=== PATIENT | female | born 1995 ===

== ENCOUNTER 2018-10-20 12:24 | Emergency (ER) | payer SELFPAY ==
[~2018-10-20] VITALS: Ht 175.3 cm; Wt 93.9 kg
--- OUTSIDE RECORDS SUMMARY | 2018-10-20 12:29 | XMS REPORT | Clinical Summary ---
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 Active Favian De La Cruz MD Neoplasm of uncertain behavior, site unspecified Medication List Medication Instructions Start Date Stop Date Generic Name NDC Status Provider Patient Instruction RITALIN LA 20 MG ORAL [id number] 1 qd METHYLPHENIDATE HCL 70102306947 Active Favian De La Cruz MD Active SPIRONOLACTONE 25 MG ORAL TABS 1 q d SPIRONOLACTONE 91986050445 Active Favian De La Cruz MD Active METFORMIN HCL 500 MG ORAL TABS 1 q d METFORMIN HCL 22500616072 Active Favian De La Cruz MD Active Advance Directives Directive Description Start Date PERMISSION TO SHARE Procedures Code Procedure Name Date Entry Date Standard Description 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
--- OUTSIDE RECORDS SUMMARY | 2018-10-20 12:29 | XMS REPORT | Clinical Summary ---
Author Author Admin, E Organization All Address Unknown Phone Unavailable Allergies, Adverse Reactions, Alerts Allergy Name Reaction Description Start Date Severity Status Provider Allergies Unknown Conditions or Problems Problem Name Problem Code [...] Patient Instruction RITALIN LA 20 MG ORAL [id number] 1 qd METHYLPHENIDATE HCL 65140709987 Active Favian De La Cruz MD Active SPIRONOLACTONE 25 MG ORAL TABS 1 q d SPIRONOLACTONE 53034077636 Active Favian De La Cruz MD Active METFORMIN HCL 500 MG ORAL TABS 1 q d METFORMIN HCL 76083605900 Active Favian De La Cruz MD Active Advance Directives Directive Description Start Date PERMISSION TO SHARE Procedures Code Procedure Name Date Entry Date Standard Description 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
--- OUTSIDE RECORDS SUMMARY | 2018-10-20 12:29 | XMS REPORT | Clinical Summary ---
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 Favian De La Cruz MD Neoplasm of uncertain behavior, site unspecified Medication List Medication Instructions Start Date Stop Date Generic Name NDC Status Provider Patient Instruction RITALIN LA 20 MG ORAL [id number] 1 qd METHYLPHENIDATE HCL 13775822963 Active Favian De La Cruz MD Active SPIRONOLACTONE 25 MG ORAL TABS 1 q d SPIRONOLACTONE 20311557377 Active Favian De La Cruz MD Active METFORMIN HCL 500 MG ORAL TABS 1 q d METFORMIN HCL 15649412965 Active Favian De La Cruz MD Active Advance Directives Directive Description Start Date PERMISSION TO SHARE Vital Signs Date Name Value Unit Range Description blood pressure, diastolic - 8462-4 71 mm[Hg] BP cross blood pressure, systolic - 8480-6 118 mm[Hg] BP sys height E&M - 8302-2 69 [in_us] Bdy height pulse rate E&M - 8867-4 50 /min Heart rate temperature E&M 97.8 [degF] Body temperature weight E&M - 3141-9 206 [lb_av] Weight Measured Procedures Code Procedure Name Date Entry Date Standard Description 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
--- OUTSIDE RECORDS SUMMARY | 2018-10-20 12:30 | XMS REPORT | Continuity of Care Document ---
Author Organization Unknown Address Unknown Allergies There is no data. Medications There is no data. Problems There is no data. Procedures There is no data. Results There is no data. Encounters ACCT No. Visit Date/Time Discharge Status Pt. Type Provider Facility Loc./Unit Complaint [id number] 12/10/2016 13:32:59 ACT Unknown
[2018-10-20 14:53] LABS: BILIRUBIN,URINE NEGATIVE (NEGATIVE); CLARITY,URINE CLOUDY; COLOR,URINE YELLOW; GLUCOSE, URINE (UA) NEGATIVE (NEGATIVE); KETONES,URINE NEGATIVE (NEGATIVE); PH,URINE 6.5 (5-9); PROTEIN,URINE NEGATIVE (NEGATIVE)
[2018-10-20 14:54] LABS: BACTERIA,URINE LARGE /HPF; LEUKOCYTE ESTERASE ,URINE 2+ (NEGATIVE); NITRITE,URINE POSITIVE (NEGATIVE); RBC,URINE 0-2 /HPF; UROBILINOGEN,URINE 0.2 MG/DL (NORMAL); WBC,URINE 50-100 /HPF
[2018-10-20 14:55] LABS: HCG,QUALITATIVE URINE POSITIVE (NEGATIVE)
[2018-10-20] MEDS ORDERED: CEPH-507 PO (15:03)
--- NOTE | 2018-10-20 15:04 | ED GU-Female ---
General Chief Complaint: Abdominal/GI Problems Stated Complaint: SUPRAPUBIC PAIN; VOMITING Source: patient, RN notes reviewed Exam Limitations: no limitations History of Present Illness Date Seen by Provider: October 20, 2018 Time Seen by Provider: 12:35 Initial Comments Patient presents c/ c/o acute onset suprapubic abdominal pain this AM. States she is 2 months . Reports daily N/V. Currently nauseated. Rates her discomfort a 4/10 and describes it is sharp. No known fever. Denies any specific symptoms. Timing/Duration: this morning Severity/Quality: moderate (4/10) Location: suprapubic Radiation: none Activities at Onset: none Prior Genitourinary Problems: none Sexual Rayle History: less than 2 months ago Modifying Factors: Improves With Other (nonw) Associated Symptoms: denies symptoms, abdominal pain (suprapubic), nausea/ vomiting Allergies and Home Medications Allergies Coded Allergies: Pertussis Vaccines (Verified Allergy, Unknown, 10/20/18) Home Medications Cephalexin 500 Mg Capsule, 500 MG PO TID Prescribed by: JULIANA WELLINGTON on 10/20/18 1503 Ondansetron 4 Mg Tab.rapdis, 4 MG PO Q6H PRN for NAUSEA/VOMITING Prescribed by: JULIANA WELLINGTON on 10/20/18 1517 Patient Home Medication List Home Medication List Reviewed: Yes Review of Systems Review of Systems Constitutional: see HPI Gastrointestinal: see HPI, abdominal pain, nausea, vomiting : Yes All Other Systemes Reviewed Negative Unless Noted: Yes (Negative excepted noted.) Physical Exam Vital Signs Vital Signs - First Documented 10/20/18 12:39 Temp 98.0 Pulse 60 Resp 18 B/P (MAP) 120/60 (80) Pulse Ox 98 O2 Delivery Room Air Capillary Refill : Height, Weight, BMI Height: '" Weight: lbs. oz. kg; BMI Method: General Appearance: WD/WN, no apparent distress, obese Cardiovascular: regular rate, rhythm Respiratory: no respiratory distress Gastrointestinal: soft; No guarding, No rebound; tenderness (suprapubic) Rectal: deferred Neurologic/Psychiatric: no motor/sensory deficits, alert, oriented x 3 Skin: warm/dry Progress/Results/Core Measures Suspected Sepsis SIRS Temperature: Pulse: Respiratory Rate: Blood Pressure / Mean: Results/Orders Lab Results My Orders Vital Signs/I&O Capillary Refill : Progress Note : Progress Note Nausea improved p/ the Zofran ODT. Departure Impression Primary Impression: Urinary tract infection Additional Impressions: N&V (nausea and vomiting) Disposition: 01 HOME, SELF-CARE Condition: Stable Departure-Patient Inst. Decision time for Depature: 15:00 Referrals: [facility] Patient Instructions: Urinary Tract Infection, Adult (DC) Scripts Ondansetron (Ondansetron Odt) 4 Mg Tab.rapdis 4 MG PO Q6H PRN for NAUSEA/VOMITING, #10 TAB 0 Refills Prov: JULIANA WELLINGTON DO 10/20/18 Cephalexin (Keflex) 500 Mg Capsule 500 MG PO TID for UTI for 10 Days, #30 CAP 0 Refills Prov: JULIANA WELLINGTON DO 10/20/18 JULIANA WELLINGTON DO October 20, 2018 15:04
[2018-10-20] MEDS ORDERED: ONDANSETRON 4 MG (ZOFRAN) ORAL DISSOLVE TAB PO STA (15:15)
[2018-10-20] MEDS ORDERED: ONDA4TAB11 PO (15:17)
[2018-10-20 15:26] VITALS: BP 114/60
== END 2018-10-20 15:24 | disposition home or self-care (01) ==
LOC: ER FS 12:27
DX: O23.40 Unspecified infection of urinary tract in pregnancy, unspecified trimester (principal); Z3A.00 Weeks of gestation of pregnancy not specified
CPT/HCPCS: 81000; 84703; 87077; 87088; 99283

== ENCOUNTER 2018-12-16 20:32 | Emergency (ER) | payer MEDICAID ==
[~2018-12-16] VITALS: Ht 175.3 cm; Wt 92.5 kg
[~2018-12-16 20:32] MED LIST: CEPH-507 PO; ONDA4TAB11 PO
--- OUTSIDE RECORDS SUMMARY | 2018-12-16 20:39 | XMS REPORT | Continuity of Care Document ---
Author Organization Unknown Address Unknown Allergies Active Description Code Type Severity Reaction Onset Reported/Identified Relationship to Patient Clinical Status Yes No Known Drug Allergies [id number] Drug Allergy Unknown N/A 10/20/2018 Yes Pertussis Vaccines [id number] Drug Allergy Unknown N/A 10/20/2018 Medications There is no data. Problems Date Dx Coded Attending Type Code Diagnosis Diagnosed By 10/20/2018 JULIANA WELLINGTON DO, Ot O23.40 UNSP INFECTION OF URINARY TRACT IN PREGN 10/20/2018 JULIANA WELLINGTON DO Ot O26.899 OT RELATED CONDITIONS, UNSPEC 10/20/2018 JULIANA WELLINGTON DO Ot Z3A.00 WEEKS OF GESTATION OF NOT SPEC 10/22/2018 JULIANA WELLINGTON DO, Ot O23.40 UNSP INFECTION OF URINARY TRACT IN PREGN 10/22/2018 JULIANA WELLINGTON DO, Ot O26.899 OT RELATED CONDITIONS, UNSPEC 10/22/2018 JULIANA WELLINGTON DO, Ot Z3A.00 WEEKS OF GESTATION OF NOT SPEC Procedures There is no data. Results Test Result Range Complete urinalysis with reflex to culture - 10/20/18 12:39 Urine color determination YELLOW NRG Urine clarity determination CLOUDY NRG Urine pH measurement by test strip 6.5 5-9 Specific gravity of urine by test strip 1.020 1.016-1.022 Urine protein assay by test strip, semi-quantitative NEGATIVE NEGATIVE Urine glucose detection by automated test strip NEGATIVE NEGATIVE Erythrocytes detection in urine sediment by light microscopy TRACE-I NEGATIVE Urine ketones detection by automated test strip NEGATIVE NEGATIVE Urine nitrite detection by test strip POSITIVE NEGATIVE Urine total bilirubin detection by test strip NEGATIVE NEGATIVE Urine urobilinogen measurement by automated test strip (mass/volume) 0.2 mg/dL NORMAL Urine leukocyte esterase detection by dipstick 2+ NEGATIVE Automated urine sediment erythrocyte count by microscopy (number/high power field) [HPF] NRG Automated urine sediment leukocyte count by microscopy (number/high power field) [HPF] NRG Bacteria detection in urine sediment by light microscopy LARGE NRG Squamous epithelial cells detection in urine sediment by light microscopy 10-25 NRG Crystals detection in urine sediment by light microscopy NONE NRG Casts detection in urine sediment by light microscopy NONE NRG Mucus detection in urine sediment by light microscopy MODERATE NRG Complete urinalysis with reflex to culture YES NRG Urine beta human chorionic gonadotropin (hCG) measurement - 10/20/18 12:39 Urine beta human chorionic gonadotropin (hCG) measurement POSITIVE NEGATIVE Bacterial urine culture - 10/20/18 12:39 Bacterial urine culture [id number] NRG COLONY COUNT >100,000/ML NRG FTX;REPORTABLE SUSCEPTIBILITY REPORTE 10-23-18, 1205. NRG RML Sensitivity Panel - 10/20/18 12:39 Gentamicin susceptibility test by minimum inhibitory concentration <= NRG Trimethoprim/sulfamethoxazole susceptibility test by minimum inhibitoryconcentration <= NRG Levofloxacin susceptibility test by minimum inhibitory concentration <= NRG Ampicillin susceptibility test by minimum inhibitory concentration > NRG Cefazolin susceptibility test by minimum inhibitory concentration 4 NRG Ceftriaxone susceptibility test by minimum inhibitory concentration <= NRG Ciprofloxacin susceptibility test by minimum inhibitory concentration <= NRG Meropenem susceptibility test by minimum inhibitory concentration <= NRG Nitrofurantoin susceptibility test by minimum inhibitory concentration 32 NRG Amoxicillin and clavulanate potassium susc JOANNA = NRG Encounters ACCT No. Visit Date/Time Discharge Status Pt. Type Provider Facility Loc./Unit Complaint [id number] 12/10/2016 13:32:59 ACT Unknown [id number] 10/20/2018 12:27:00 10/20/2018 15:24:00 DIS Emergency JULIANA WELLINGTON DO [facility] ER FS SUPRAPUBIC PAIN; VOMITING [id number] 12/16/2018 20:34:00 ACT Emergency RASHMI LOPEZ MD [facility] ER FS BUMP NEAR GROIN AREA
--- NOTE | 2018-12-16 21:55 | NUR ---
PT.'S BOYFRIEND CAME TO THE DESK AND WAS STATING THE PT. IS AND NEEDED TO BE SEEN IN THE NEXT 20 MIN OR HE WAS GOING TO TAKE NAMES AND REPORT ALL OF US FOR NOT SEEING HER. THE PT. WAS TRIAGED BUT THE DOCTOR HAD NOT HAD TIME TO SEE HER WE HAD 5 CRITICAL PATIENTS IN THE ER. THIS PT. WAS BEING SEEN FOR AN ABSCESS NOT AN EMERGENT SITUATION UNLIKE THE OTHER PATIENTS WHO WERE IN THE ER. THIS RN GAVE HER NAME TO THE BOYFRIEND OF THE PATIENT AND THE PATIENT SIGNED AMA PAPERS.
[2018-12-16 22:04] VITALS: BP 129/51
== END 2018-12-16 22:07 | disposition left against medical advice (07) ==
LOC: EDUNIT# 20:32 → ER FS 20:34
DX: L02.214 Cutaneous abscess of groin (principal)
CPT/HCPCS: 99281

== ENCOUNTER 2019-05-05 06:00 | Inpatient (IN) | payer MEDICAID ==
[2019-05-05] VITALS (58 sets, daily range): BP systolic 92–138; BP diastolic 52–80
[~2019-05-05] VITALS: Ht 175.3 cm; Wt 101.3 kg
[2019-05-05] MEDS: D5 LR IV SOLUTION 1,000 ML IV SCH ×2 (07:49→15:55)
[2019-05-05] MEDS ORDERED: D5 LR IV SOLUTION 1,000 ML IV ONE (07:57)
[2019-05-05] MEDS ORDERED: OXYTOCIN/NORMAL SALINE 500 ML IV ONE (07:57)
[2019-05-05] MEDS ORDERED: OXYTOCIN/NORMAL SALINE 500 ML IV SCH ×2 (08:19→19:07)
[2019-05-05 08:26] LABS: BASOPHILS % (AUTO) 0 % (0-10); EOSINOPHILS # (AUTO) 0.1 10^3/uL (0.0-0.3); EOSINOPHILS % (AUTO) 1 % (0-10); HEMATOCRIT 34 % (35-52); HEMOGLOBIN 11.4 G/DL (11.5-16.0); LYMPHOCYTES # (AUTO) 2.3 X 10^3 (1.0-4.0); LYMPHOCYTES % (AUTO) 21 % (12-44); MEAN CORPUSCULAR HEMOGLOBIN 31 PG (25-34); MEAN CORPUSCULAR HGB CONC 34 G/DL (32-36); MEAN CORPUSCULAR VOLUME 93 FL (80-99); MONOCYTES # (AUTO) 0.6 X 10^3 (0.0-1.0); MONOCYTES % (AUTO) 6 % (0-12); NEUTROPHILS # (AUTO) 7.5 X 10^3 (1.8-7.8); NEUTROPHILS % (AUTO) 71 % (42-75); PLATELET COUNT 431 10^3/uL (130-400); RED CELL DISTRIBUTION WIDTH 13.5 % (10.0-14.5); WHITE BLOOD COUNT 10.6 10^3/uL (4.3-11.0)
[2019-05-05 08:27] LABS: BILIRUBIN,URINE NEGATIVE (NEGATIVE); CLARITY,URINE CLEAR; COLOR,URINE AMBER; GLUCOSE, URINE (UA) NEGATIVE (NEGATIVE); KETONES,URINE NEGATIVE (NEGATIVE); LEUKOCYTE ESTERASE ,URINE 1+ (NEGATIVE); NITRITE,URINE POSITIVE (NEGATIVE); PROTEIN,URINE NEGATIVE (NEGATIVE)
[2019-05-05 08:36] LABS: BACTERIA,URINE MODERATE /HPF
--- NOTE | 2019-05-05 09:16 | History & Physical-OB ---
OB - Chief Complaint & HPI Date/Time Date of Admission: Date of Admission: May 05, 2019 at 07:30 Date seen by a Provider: May 05, 2019 Time Seen by a Provider: 09:13 Chief Complaint/History OB-Reason for Admission/Chief: Induction of Labor Hx : 2 Hx Para: 1 Expected Date of Delivery: May 09, 2019 Gestational Age in Weeks: 39 Gestational Age in Days: 3 Indication for induction: maternal discomfort Admission Nurse Assessment Rev: Yes Allergies and Home Medications Allergies Coded Allergies: Pertussis Vaccines (Verified Allergy, Unknown, 10/20/18) Home Medications Cephalexin 500 Mg Capsule, 500 MG PO TID Prescribed by: JULIANA WELLINGTON on 10/20/18 1503 Ondansetron 4 Mg Tab.rapdis, 4 MG PO Q6H PRN for NAUSEA/VOMITING Prescribed by: JULIANA WELLINGTON on 10/20/18 1517 Patient Home Medication List Home Medication List Reviewed: Yes OB - History Hx of Present Care: Yes Ultrasounds: Normal mid trimester US Obstetrical Complications: None Medical Complications: Other (marajuana use) Patient Past Medical History marajuana use Social History/Family History Alcohol Use: Denies Use Recreational Drug Use: Yes (previous hx THC use) 2nd Hand Smoke Exposure: Yes Immunizations Date of Influenza Vaccine: Feb 26, 2019 OB - Admission Exam Physical Exam Vitals: Vital Signs 05/05/19 05/05/19 07:45 08:15 Temp 36.4 Pulse 77 Resp 18 B/P (MAP) 138/56 (83) Pulse Ox 97 O2 Delivery Room Air HEENT: NCAT Heart: Rhythm Normal Lungs: Clear Abdomen: Gravid Extremities: Normal Reflexes: Normal Cervical Dilatation: 2cm Effacement: 25% Station: -3 Membranes: Intact Amniotic Fluid: Clear Heart Rate: 150's Accelerations: Accelerations Present Decelerations: Variable Decelerations Short Term Variability: Present Tax Intern Variability: Average (6-25) Contractions on Admission: < 5 Minutes Apart Labs Laboratory Tests Test 05/05/19 07:30 05/05/19 07:49 Range/Units Urine Color MICHELLE H Urine Clarity CLEAR Urine pH 6.0 5-9 Urine Specific [place] 1.025 H 1.016-1.022 Urine Protein NEGATIVE NEGATIVE Urine Glucose (UA) NEGATIVE NEGATIVE Urine Ketones NEGATIVE NEGATIVE Urine Nitrite POSITIVE NEGATIVE Urine Bilirubin NEGATIVE NEGATIVE Urine Urobilinogen 1.0 < = 1.0 MG/DL Urine Leukocyte Esterase 1+ H NEGATIVE Urine RBC (Auto) NEGATIVE NEGATIVE Urine RBC 2-5 H /HPF Urine WBC 10-25 H /HPF Urine Squamous Epithelial Cells 10-25 H /HPF Urine Crystals NONE /LPF Urine Bacteria MODERATE H /HPF Urine Casts NONE /LPF Urine Mucus NEGATIVE /LPF Urine Culture Indicated CULTURE PENDING White Blood Count 10.6 4.3-11.0 10^3/uL Red Blood Count 3.66 L 4.35-5.85 10^6/uL Hemoglobin 11.4 L 11.5-16.0 G/DL Hematocrit 34 L 35-52 % Mean Corpuscular Volume 93 80-99 FL Mean Corpuscular Hemoglobin 31 25-34 PG Mean Corpuscular Hemoglobin Concent 34 32-36 G/DL Red Cell Distribution Width 13.5 10.0-14.5 % Platelet Count 431 H 130-400 10^3/uL Mean Platelet Volume 10.0 7.4-10.4 FL Neutrophils (%) (Auto) 71 42-75 % Lymphocytes (%) (Auto) 21 12-44 % Monocytes (%) (Auto) 6 0-12 % Eosinophils (%) (Auto) 1 0-10 % Basophils (%) (Auto) 0 0-10 % Neutrophils # (Auto) 7.5 1.8-7.8 X 10^3 Lymphocytes # (Auto) 2.3 1.0-4.0 X 10^3 Monocytes # (Auto) 0.6 0.0-1.0 X 10^3 Eosinophils # (Auto) 0.1 0.0-0.3 10^3/uL Basophils # (Auto) 0.0 0.0-0.1 10^3/uL OB - Assessment/Plan/Diagnosis Assessment Assessment: induction of labor Admission Dx Induction of labor at 39 3/7 wga. GBS negative. Admission Status: Inpatient Order (span 2 midnights) Reason for Inpatient Admission: Induction of labor. Plan Plan: Induction Induction Method: per Pitocin Protocol Other Plan AROM. WARREN TRAORE MD May 05, 2019 09:15 POS
[2019-05-05] MEDS ORDERED: SUFENTA 0.6MCG/ML BUPIVA 0.125 100 ML ONE (10:24)
[2019-05-05] MEDS ORDERED: LACTATED RINGERS 1,000 ML IV ONE ×3 (10:24→11:50)
[2019-05-05] MEDS ORDERED: fentaNYL INJECTION 100 MCG/2 ML AMP ONE (11:22)
[2019-05-05] MEDS ORDERED: BUPIVACAINE 0.25% 30 ML (SENSORCAINE) VIAL ONE (11:22)
[2019-05-05] MEDS ORDERED: NALOXONE 0.4 MG/ML 1 ML (NARCAN) VIAL IV PRN (12:00)
[2019-05-05] MEDS ORDERED: ONDANSETRON 4 MG/2 ML (SDV) Z0FRAN IV PRN (12:00)
[2019-05-05] MEDS ORDERED: EPIDURAL (SUFENTA 0.6MCG/ML BUPIVA 0.125%) 100 ML BAG EPI PRN (12:00)
[2019-05-05] MEDS ORDERED: CATHETER FLUSH 10 ML SYR IV SCH ×2 (14:00→22:00)
[2019-05-05 14:34] LABS: AMPHETAMINE SCREEN, URINE NEGATIVE (NEGATIVE); BARBITURATE SCREEN URINE NEGATIVE (NEGATIVE); BENZODIAZEPINES SCREEN URINE NEGATIVE (NEGATIVE); CANNABINOID SCREEN, URINE NEGATIVE (NEGATIVE); COCAINE SCREEN URINE NEGATIVE (NEGATIVE); METHADONE STAT NEGATIVE (NEGATIVE); METHAMPHETAMINE SCREEN URINE S NEGATIVE (NEGATIVE); OPIATE SCREEN URINE NEGATIVE (NEGATIVE); OXYCODONE STAT NEGATIVE (NEGATIVE); PROPOXYPHENE STAT NEGATIVE (NEGATIVE); TRICYCLIC ANTIDEPRESSANTS SCRE NEGATIVE (NEGATIVE)
--- NOTE | 2019-05-05 19:07 | OB Labor & Delivery Record ---
Vag Delivery Note Vag Delivery Note Date of Delivery: 05/05/19 Preoperative Diagnosis: Renu Hernandez is a (23 /Para 2 / 1,Gestational Age (wks)39with [] Postoperative Diagnosis: Same Surgeon: WARREN TRAORE Applied Anthropologist: [none] Anesthesia: [epidural] Delivery Type: [] Findings: [] Viable [male] infant, apgars [8/9], weight [7 pounds 14 ounces] Lacerations: Intact placenta with 3 vessel cord. Loose nuchal cord. Estimated Blood Loss: [150] ml Complications: None Condition: Stable Description of Procedure: The patient is a 23 year old female who presented [for induction of labor]. She was admitted and informed consent was obtained. Her labor course was remarkable for [OP position] She progressed to complete dilatation and began to push. She was then set up for delivery. The 's head was delivered atraumatically in the [OA] position. The shoulders and remainder of the 's body were then delivered without difficulty. Upon delivery, the head was held below the level of the perineum and the mouth and nares were bulb suctioned. The cord was doubly clamped and cut and the infant was handed off to the pediatric staff. An intact placenta with 3-vessel cord delivered via Brodie and there was found to be minimal bleeding.~ Vigorous fundal massage was performed and the fundus was found to be firm. IV oxytocin was given. Examination of the vagina and perineum revealed no lacerations. Following the repair, sponge, instrument and needle counts were correct. Mom and baby were both in stable condition in the labor suite. Vitals - Labs Vital Signs - I&O Vital Signs Date Time Temp Pulse Resp B/P (MAP) Pulse Ox O2 Delivery O2 Flow Rate FiO2 05/05/19 16:30 54 18 120/58 (78) 97 Room Air 05/05/19 16:15 60 18 106/53 (70) 99 Room Air 05/05/19 16:00 56 18 111/52 (71) 98 Room Air 05/05/19 15:45 60 18 113/53 (73) 98 Room Air 05/05/19 15:30 61 18 108/52 (70) 98 Room Air 05/05/19 15:15 61 18 114/53 (73) 99 Room Air 05/05/19 15:00 62 18 112/59 (76) 99 Room Air 05/05/19 14:45 60 18 107/56 (73) 99 Room Air 05/05/19 14:30 57 18 114/55 (74) 98 Room Air 05/05/19 14:15 60 18 114/59 (77) 99 Room Air 05/05/19 14:00 60 18 119/58 (78) 100 Room Air 05/05/19 13:45 64 18 109/59 (76) 100 Room Air 05/05/19 13:30 69 18 122/57 (78) 99 Room Air 05/05/19 13:15 58 18 120/68 (85) 98 Room Air 05/05/19 13:00 55 18 123/59 (80) 98 Room Air 05/05/19 12:45 55 18 123/59 (80) 98 Room Air 05/05/19 12:30 60 18 124/55 (78) 98 Room Air 05/05/19 12:15 61 18 120/56 (77) 96 Room Air 05/05/19 12:00 64 18 122/57 (78) 98 Room Air 05/05/19 11:55 72 18 121/59 (79) 97 Room Air 05/05/19 11:50 72 18 121/56 (77) 97 Room Air 05/05/19 11:45 36.6 68 18 121/59 (79) 98 Room Air 05/05/19 11:40 67 18 129/65 (86) 99 Room Air 05/05/19 11:35 66 18 128/63 (84) 98 Room Air 05/05/19 11:30 67 18 138/62 (87) 99 Room Air 05/05/19 11:25 54 18 120/62 (81) 100 Room Air 05/05/19 11:15 70 18 121/64 (83) Room Air 05/05/19 11:00 69 18 125/58 (80) Room Air 05/05/19 10:45 64 18 120/64 (82) Room Air 05/05/19 10:30 58 18 125/65 (85) Room Air 05/05/19 10:15 36.9 56 18 128/60 (82) Room Air 05/05/19 10:00 64 18 125/62 (83) Room Air 05/05/19 09:45 72 18 123/58 (79) Room Air 05/05/19 09:30 63 18 123/58 (79) 97 Room Air 05/05/19 09:15 67 18 130/60 (83) 98 Room Air 05/05/19 09:00 71 18 129/63 (85) 98 Room Air 05/05/19 09:00 36.4 76 18 97 Room Air 05/05/19 08:45 77 18 125/72 (89) Room Air 05/05/19 08:30 78 18 126/58 (80) Room Air 05/05/19 08:15 77 18 138/56 (83) Room Air 05/05/19 08:00 78 18 128/69 (88) Room Air 05/05/19 07:45 36.4 76 18 125/71 (89) 97 Room Air Labs Laboratory Tests 05/05/19 07:30: Urine Color AMBERH, Urine Clarity CLEAR, Urine pH 6.0, Urine Specific [place] 1.025H, Urine Protein NEGATIVE, Urine Glucose (UA) NEGATIVE, Urine Ketones NEGATIVE, Urine Nitrite POSITIVE, Urine Bilirubin NEGATIVE, Urine Urobilinogen 1.0, Urine Leukocyte Esterase 1+H, Urine RBC (Auto) NEGATIVE, Urine RBC 2-5H, Urine WBC 10-25H, Urine Squamous Epithelial Cells 10-25H, Urine Crystals NONE, Urine Bacteria MODERATEH, Urine Casts NONE, Urine Mucus NEGATIVE, Urine Culture Indicated CULTURE PENDING, Urine Opiates Screen NEGATIVE, Urine Oxycodone Screen NEGATIVE, Urine Methadone Screen NEGATIVE, Urine Propoxyphene Screen NEGATIVE, Urine Barbiturates Screen NEGATIVE, Ur Tricyclic Antidepressants Screen NEGATIVE, Urine Phencyclidine Screen NEGATIVE, Urine Amphetamines Screen NEGATIVE, Urine Methamphetamines Screen NEGATIVE, Urine Benzodiazepines Screen NEGATIVE, Urine Cocaine Screen NEGATIVE, Urine Cannabinoids Screen NEGATIVE 05/05/19 07:49: White Blood Count 10.6, Red Blood Count 3.66L, Hemoglobin 11.4L, Hematocrit 34L, Mean Corpuscular Volume 93, Mean Corpuscular Hemoglobin 31, Mean Corpuscular Hemoglobin Concent 34, Red Cell Distribution Width 13.5, Platelet Count 431H, Mean Platelet Volume 10.0, Neutrophils (%) (Auto) 71, Lymphocytes (%) (Auto) 21, Monocytes (%) (Auto) 6, Eosinophils (%) (Auto) 1, Basophils (%) (Auto) 0, Neutrophils # (Auto) 7.5, Lymphocytes # (Auto) 2.3, Monocytes # (Auto) 0.6, Eosinophils # (Auto) 0.1, Basophils # (Auto) 0.0 WARREN TRAORE MD May 05, 2019 19:07 POS
[2019-05-05] MEDS ORDERED: WITCH HAZEL(TUCKS) 40 EA JAR TOP PRN (19:15)
[2019-05-05] MEDS ORDERED: BENZOCAINE/MENTHOL (DERMOPLAST) 56 ML CAN TP PRN (19:15)
[2019-05-05] MEDS ORDERED: MEASLES,MUMPS,RUBELLA 1 EA INJ SQ ONE (19:15)
[2019-05-05] MEDS: IBUPROFEN 600 MG (MOTRIN) TAB PO SCH (21:10)
[2019-05-05] MEDS: DOCUSATE SODIUM 100 MG (COLACE) CAP PO SCH (23:14)
[2019-05-05] MEDS: ACETAMINOPHEN 500 MG TAB (TYLENOL) PO SCH (23:14)
[2019-05-06 04:03] VITALS: BP 104/64
[2019-05-06] MEDS: IBUPROFEN 600 MG (MOTRIN) TAB PO SCH ×4 (04:03→23:20)
[2019-05-06 07:33] LABS: BASOPHILS % (AUTO) 0 % (0-10); EOSINOPHILS # (AUTO) 0.2 10^3/uL (0.0-0.3); EOSINOPHILS % (AUTO) 2 % (0-10); HEMATOCRIT 33 % (35-52); HEMOGLOBIN 10.7 G/DL (11.5-16.0); LYMPHOCYTES # (AUTO) 3.1 X 10^3 (1.0-4.0); LYMPHOCYTES % (AUTO) 23 % (12-44); MEAN CORPUSCULAR HEMOGLOBIN 31 PG (25-34); MEAN CORPUSCULAR HGB CONC 32 G/DL (32-36); MEAN CORPUSCULAR VOLUME 97 FL (80-99); MEAN PLATELET VOLUME 10.3 FL (7.4-10.4); MONOCYTES % (AUTO) 7 % (0-12); NEUTROPHILS % (AUTO) 68 % (42-75); PLATELET COUNT 332 10^3/uL (130-400); RED CELL DISTRIBUTION WIDTH 13.5 % (10.0-14.5); WHITE BLOOD COUNT 13.3 10^3/uL (4.3-11.0)
[2019-05-06 08:00] VITALS: BP 115/57
--- NOTE | 2019-05-06 08:21 | Progress Note ---
Subjective Subjective/Events-last exam Pain controlled. Bleeding about the same as a period. Getting up and moving around. . Objective Exam Last Set of Vital Signs Vital Signs Date Time Temp Pulse Resp B/P (MAP) Pulse Ox O2 Delivery O2 Flow Rate FiO2 05/06/19 04:03 36.8 53 16 104/64 (77) 96 Room Air Capillary Refill : Less Than 3 Seconds I&O Intake and Output 05/06/19 00:00 Intake Total 3500 ml Balance 3500 ml Intake IV Total 3500 ml Daily Weight Change No General: Alert, Oriented X3 HEENT: Atraumatic Lungs: Clear to Auscultation Heart: Regular Rate, No Murmurs Abdomen: Normal Bowel Sounds, Other (fundus firm and below umbilicus) Extremities: Other (1+ edema bilaterally) Skin: No Rashes Results/Procedures Lab Laboratory Tests 05/06/19 07:20: White Blood Count 13.3H, Red Blood Count 3.43L, Hemoglobin 10.7L, Hematocrit 33L , Mean Corpuscular Volume 97, Mean Corpuscular Hemoglobin 31, Mean Corpuscular Hemoglobin Concent 32, Red Cell Distribution Width 13.5, Platelet Count 332, Mean Platelet Volume 10.3, Neutrophils (%) (Auto) 68, Lymphocytes (%) (Auto) 23, Monocytes (%) (Auto) 7, Eosinophils (%) (Auto) 2, Basophils (%) (Auto) 0, Neutrophils # (Auto) 9.0H, Lymphocytes # (Auto) 3.1, Monocytes # (Auto) 1.0, Eosinophils # (Auto) 0.2, Basophils # (Auto) 0.0 Assessment/Plan Assessment/Plan Admission Dx day 1 from at 39 3/7 wga, GBS negative. (1) care following vaginal delivery Assessment & Plan: Doing well. Continue to work on latching. Home in AM. Clinical Quality Measures DVT/VTE Risk/Contraindication: Risk Factor Score Per Nursin RFS Level Per Nursing on Admit: 2=Moderate WARREN TRAORE MD May 06, 2019 08:21 POS
[2019-05-06] MEDS: DOCUSATE SODIUM 100 MG (COLACE) CAP PO SCH ×2 (08:32→20:45)
--- NOTE | 2019-05-06 08:52 | Anesthesia-Regional Post-Op ---
Regional Patient Condition Mental Status: Alert, Oriented x3 Circulation: Same as Pre-Op Headache: Absent Sensation: Full Recovery Motor Block: Absent Post Op Complications Complications None Follow Up Care/Instructions Patient Instructions None needed. Anesthesia/Patient Condition Patient is doing well, no complaints, stable vital signs, no apparent adverse anesthesia problems. No complications reported per nursing. DORINDA FLORES CRNA May 06, 2019 08:52 POS
[2019-05-06 12:30] VITALS: BP 107/54
[2019-05-06] MEDS: ACETAMINOPHEN 500 MG TAB (TYLENOL) PO SCH ×2 (12:36→20:45)
[2019-05-06 16:00] VITALS: BP 126/58
[2019-05-06 20:44] VITALS: BP 123/74
[2019-05-07 05:23] VITALS: BP 110/75
[2019-05-07] MEDS: IBUPROFEN 600 MG (MOTRIN) TAB PO SCH (05:24)
[2019-05-07 07:40] VITALS: BP 123/64
[2019-05-07] MEDS: ACETAMINOPHEN 500 MG TAB (TYLENOL) PO SCH (07:46)
[2019-05-07] MEDS: DOCUSATE SODIUM 100 MG (COLACE) CAP PO SCH (07:46)
--- NOTE | 2019-05-07 08:54 | Discharge Instructions ---
Discharge Inst-[facility] Reconcile Patient Problems Problems Reviewed?: Yes Depart Medications New, Converted or Re-Newed RX: Call to Patients Pharmacy Follow Up/Instructions Goal/Follow Up: Follow-up with Dr. Traore in 6 weeks for post- check-up. Activity Activity: Activity as Tolerated Driving Instructions: You May Drive NO SMOKING: NO SMOKING Nothing Inside Vagina: No Douching, No Kiefer, No Tampons Diet Discharge Diet: No Restrictions Symptoms to Report to : Bleeding Excessive, Fever Over 101 Degrees F, Vaginal Bleeding Increase, Lightheadedness For Any Problems or Questions: Contact Your Physician WARREN TRAORE MD May 07, 2019 08:54 POS
--- NOTE | 2019-05-07 08:58 | OB Labor & Delivery Record ---
L&D History History Expected Date of Delivery: May 09, 2019 Gestational Age in Weeks: 38 Hx : 2 Hx Para: 1 L&D Stage1 Stage One Onset of Labor - Date: May 06, 2019 Onset of Labor - Time: 08:00 Monitors and Tracing Monitor Mode: Internal Heart Rate: 120 Station: 0 Vital Signs VS - Last 72 Hours, by Label POS 05/05/19 05/05/19 05/05/19 05/05/19 07:45 08:00 08:15 08:30 Temp 36.4 Pulse 76 78 77 78 Resp 18 18 18 18 B/P (MAP) 125/71 (89) 128/69 (88) 138/56 (83) 126/58 (80) Pulse Ox 97 O2 Delivery Room Air Room Air Room Air Room Air 05/05/19 05/05/19 05/05/19 05/05/19 08:45 09:00 09:00 09:15 Temp 36.4 Pulse 77 76 71 67 Resp 18 18 18 18 B/P (MAP) 125/72 (89) 129/63 (85) 130/60 (83) Pulse Ox 97 98 98 O2 Delivery Room Air Room Air Room Air Room Air 05/05/19 05/05/19 05/05/19 05/05/19 09:30 09:45 10:00 10:15 Temp 36.9 Pulse 63 72 64 56 Resp 18 18 18 18 B/P (MAP) 123/58 (79) 123/58 (79) 125/62 (83) 128/60 (82) Pulse Ox 97 O2 Delivery Room Air Room Air Room Air Room Air 05/05/19 05/05/19 05/05/19 05/05/19 10:30 10:45 11:00 11:15 Pulse 58 64 69 70 Resp 18 18 18 18 B/P (MAP) 125/65 (85) 120/64 (82) 125/58 (80) 121/64 (83) O2 Delivery Room Air Room Air Room Air Room Air 05/05/19 05/05/19 05/05/19 05/05/19 11:25 11:30 11:35 11:40 Pulse 54 67 66 67 Resp 18 18 18 18 B/P (MAP) 120/62 (81) 138/62 (87) 128/63 (84) 129/65 (86) Pulse Ox 100 99 98 99 O2 Delivery Room Air Room Air Room Air Room Air 05/05/19 05/05/19 05/05/19 05/05/19 11:45 11:50 11:55 12:00 Temp 36.6 Pulse 68 72 72 64 Resp 18 18 18 18 B/P (MAP) 121/59 (79) 121/56 (77) 121/59 (79) 122/57 (78) Pulse Ox 98 97 97 98 O2 Delivery Room Air Room Air Room Air Room Air 05/05/19 05/05/19 05/05/19 05/05/19 12:15 12:30 12:45 13:00 Pulse 61 60 55 55 Resp 18 18 18 18 B/P (MAP) 120/56 (77) 124/55 (78) 123/59 (80) 123/59 (80) Pulse Ox 96 98 98 98 O2 Delivery Room Air Room Air Room Air Room Air 05/05/19 05/05/19 05/05/19 05/05/19 13:15 13:30 13:45 14:00 Pulse 58 69 64 60 Resp 18 18 18 18 B/P (MAP) 120/68 (85) 122/57 (78) 109/59 (76) 119/58 (78) Pulse Ox 98 99 100 100 O2 Delivery Room Air Room Air Room Air Room Air 05/05/19 05/05/19 05/05/19 05/05/19 14:15 14:30 14:45 15:00 Pulse 60 57 60 62 Resp 18 18 18 18 B/P (MAP) 114/59 (77) 114/55 (74) 107/56 (73) 112/59 (76) Pulse Ox 99 98 99 99 O2 Delivery Room Air Room Air Room Air Room Air 05/05/19 05/05/19 05/05/19 05/05/19 15:15 15:30 15:45 16:00 Pulse 61 61 60 56 Resp 18 18 18 18 B/P (MAP) 114/53 (73) 108/52 (70) 113/53 (73) 111/52 (71) Pulse Ox 99 98 98 98 O2 Delivery Room Air Room Air Room Air Room Air 05/05/19 05/05/19 05/05/19 05/05/19 16:15 16:30 16:45 17:00 Pulse 60 54 58 55 Resp 18 18 18 18 B/P (MAP) 106/53 (70) 120/58 (78) 120/64 (82) 119/59 (79) Pulse Ox 99 97 96 97 O2 Delivery Room Air Room Air Room Air Room Air 05/05/19 05/05/19 05/05/19 05/05/19 17:15 17:30 17:45 18:00 Temp 35.9 Pulse 67 57 66 59 Resp 18 18 18 18 B/P (MAP) 123/63 (83) 123/60 (81) 92/52 (65) Pulse Ox 99 98 98 97 O2 Delivery Room Air Room Air Room Air Room Air 05/05/19 05/05/19 05/05/19 05/05/19 18:15 18:30 18:45 19:00 Pulse 76 72 69 Resp 18 18 18 B/P (MAP) 115/77 (90) 126/59 (81) 120/68 (85) Pulse Ox 100 O2 Delivery Room Air Room Air Room Air Room Air 05/05/19 05/05/19 05/05/19 05/05/19 19:12 19:27 19:42 19:57 Temp 36.4 Pulse 64 67 70 68 Resp 16 16 16 16 B/P (MAP) 118/59 (78) 109/56 (73) 116/59 (78) 115/62 (79) O2 Delivery Room Air Room Air Room Air Room Air 05/05/19 05/05/19 05/05/19 05/05/19 20:12 20:31 20:42 20:58 Pulse 68 64 56 78 Resp 16 16 16 16 B/P (MAP) 111/59 (76) 99/54 (69) 126/60 (82) 118/80 (93) O2 Delivery Room Air Room Air Room Air Room Air 05/05/19 05/06/19 05/06/19 05/06/19 23:14 04:03 08:00 12:30 Temp 37.3 36.8 37.0 37.0 Pulse 69 53 67 64 Resp 16 16 16 18 B/P (MAP) 109/61 (77) 104/64 (77) 115/57 (76) 107/54 (71) Pulse Ox 95 96 100 96 O2 Delivery Room Air Room Air Room Air Room Air 05/06/19 05/06/19 05/07/19 16:00 20:44 05:23 Temp 37.1 37.3 36.4 Pulse 72 71 57 Resp 18 18 18 B/P (MAP) 126/58 (80) 123/74 (90) 110/75 (87) Pulse Ox 97 98 97 O2 Delivery Room Air Room Air Room Air Fundal Ht/Cervical Dilatation Uterus Position: -2 Rupture of Membranes Amniotic Membrane Rupture Time: 0901 Induction/Anesthesia Epidural Cath Placement - Time: 1137 L&D Stage2 Stage Two Stage II Date: May 07, 2019 Stage II Time: 18:53 Monitors and Tracing Monitor Mode: Internal Heart Rate: 120 Presentation: Vertex Cord Descript/Complications Cord Vessel Description: 3 Vessels Delivery Type Infant Delivery Method: Spontaneous Vaginal Episiotomy/Perineal Laceration Laceraction(s)/Extensions: No Condition of Delivery Delivery Date & Time: 05/06 653 pm 1 minute Comment: 8 5 minute Comment: 9 Condition of Infant Condition of Infant: Living Exam: No Observed Abnormalities L&D Stage3 Pictocin Pitocin Administration mu/min: 16 Pitocin ml/hr: 16 Pitocin Administration Comment: pitocin increased Placenta Delivery Placenta Delivery: Spontaneous Delivery Summary Summary Total Labor Time 12 HOURS Estimated blood loss (mL): 150 Attending at delivery: WARREN Gomez MD May 07, 2019 08:57 POS
[2019-05-07] MEDS ORDERED: IBUP-844 PO (11:03)
== END 2019-05-07 11:52 | disposition home or self-care (01) | DRG 807 ==
LOC: LDRP 07:30
PROVIDERS: ADMIT Family Medicine; ATTEND Family Medicine
PROC: 10907ZC Drainage of Amniotic Fluid, Therapeutic from Products of Conception, Via Natural or Artificial Opening (ICD-10-PCS; 2019-05-05)
PROC: 3E033VJ Introduction of Other Hormone into Peripheral Vein, Percutaneous Approach (ICD-10-PCS; 2019-05-05)
PROC: 10E0XZZ Delivery of Products of Conception, External Approach (ICD-10-PCS; principal; 2019-05-06)
DX: O76 Abnormality in fetal heart rate and rhythm complicating labor and delivery (principal); Z37.0 Single live birth; Z3A.39 39 weeks gestation of pregnancy
CPT/HCPCS: 36415; 80306; 81000; 85025; 86850; 86900; 86901; 87077; 87088; 87186